=== PATIENT | male | born 1990 | race Caucasian/White ===

== ENCOUNTER 2018-11-21 19:33 | Emergency (ER) | payer BC ==
[2018-11-21] MEDS ORDERED: predniSONE TAB* 20 MG PO ONE (20:39)
[2018-11-21 20:42] VITALS: BP 131/78
--- NOTE | 2018-11-21 20:47 | UC ---
Lower Extremity/Ankle HPI - HPI Summary HPI Summary: 28-year-old male presents with complaints of 3 day history of redness, swelling , and pain of the right great toe. Denies injury. Concerned for gout. States he has been consuming a lot of red meat recently and has been drinking a couple of beers on a daily basis. Pain worsens with touch and weightbearing. Has taken ibuprofen with minimal relief in symptoms. Denies fever, chills, numbness , or tingling. - History of Current Complaint Stated Complaint: FOOT COMPLAINT Time Seen by Provider: 11/21/18 20:38 Hx Obtained From: Patient - Allergies/Home Medications Allergies/Adverse Reactions: Allergies Allergy/AdvReac Type Severity Reaction Status Date / Time No Known Allergies Allergy Verified 11/21/18 20:39 Home Medications: Home Medications Ibuprofen TAB* [Advil TAB*] 400 mg PO Q6H PRN 11/21/18 [History Confirmed ] PMH/Surg Hx/FS Hx/Imm Hx Previously Healthy: Yes - Denies significant PMH - Surgical History Surgical History: None - Family History Known Family History: Positive: Non-Contributory - Social History Occupation: Employed Full-time Lives: With Family Alcohol Use: Occasionally Review of Systems All Other Systems Reviewed And Are Negative: Yes Constitutional: Negative: Fever, Chills Skin: Positive: Other - erythema Respiratory: Positive: Negative Cardiovascular: Positive: Negative Gastrointestinal: Positive: Negative Genitourinary: Positive: Negative Motor: Negative: Weakness Neurovascular: Negative: Decreased Sensation Musculoskeletal: Positive: Other: - See HPI Neurological: Positive: Negative Is Patient Immunocompromised?: No Physical Exam - Summary Physical Exam Summary: GENERAL APPEARANCE: Well developed, well nourished, alert and cooperative, and appears to be in no acute distress. CARDIAC: Normal S1 and S2. No S3, S4 or murmurs. Rhythm is regular. There is no peripheral edema, cyanosis or pallor. Extremities are warm and well perfused. Capillary refill is less than 2 seconds. Peripheral pulses intact. LUNGS: Clear to auscultation without rales, rhonchi, wheezing or diminished breath sounds. ABDOMEN: Positive bowel sounds. Soft, nondistended, nontender. No guarding or rebound. No masses or hepatosplenomegally. MUSKULOSKELETAL: Normal muscular development. Limping gait. EXTREMITIES: Tenderness with erythema, increased warmth, and edema to the MTP of the right great toe. No gross deformity. Circulation sensation intact. SKIN: Skin normal color, texture and turgor with no lesions or eruptions. Triage Information Reviewed: Yes Vital Signs Reviewed: Yes Lower Extremity Course/Dx - Course Course Of Treatment: 28-year-old male presents with complaints of 3 day history of redness, swelling , and pain of the right great toe. Denies injury. Concerned for gout. States he has been consuming a lot of red meat recently and has been drinking a couple of beers on a daily basis. Pain worsens with touch and weightbearing. Has taken ibuprofen with minimal relief in symptoms. Denies fever, chills, numbness , or tingling. Afebrile. Vital signs stable. Patient had tenderness with erythema, increased warmth, and edema to the MTP of the right great toe. No gross deformity. Circulation sensation intact. Remainder of exam was unremarkable. Discussed with the patient that his history and exam are consistent with an acute gout arthritis. He was given a dose of prednisone 40 mg in the clinic and prescribed a prednisone taper. I also provided the patient with some information on a low purine diet to prevent future flareups. He is to follow-up with his primary care provider in 3-5 days if symptoms are not improving. Anticipatory guidance warning symptoms were reviewed with the patient. Verbalizes understanding and agrees with plan of care. - Differential Dx/Diagnosis Differential Diagnosis/HQI/PQRI: Cellulitis, Fracture (Closed), Gout, Sprain Provider Diagnosis: Gouty arthritis of right great toe Discharge - Sign-Out/Discharge Documenting (check all that apply): Patient Departure All imaging exams completed and their final reports reviewed: No Studies - Discharge Plan Condition: Stable Disposition: HOME Prescriptions: predniSONE TAB* [Deltasone 10 MG TAB*] 10 mg PO DAILY #26 tab Patient Education Materials: Low Purine Diet (ED), Gout (ED) Forms: *Work Release Referrals: No Primary Care Phys,NOPCP [Primary Care Provider] - Additional Instructions: Your history and exam are consistent with gout. We gave you a dose of an steroid called prednisone to help with the pain and inflammation. We will have you take a tapering dose of prednisone over the next few days. Starting tomorrow, take prednisone 40 mg (4 tabs) daily for 2 days, then 30 mg ( 3 tabs) for 3 days, then 20 mg (2 tabs) for 3 days, then 10 mg (1 tab) for 3 days, then stop. I have provided you with information on a low purine diet that may help prevent future attacks. Return here or follow up with your primary care provider in 3-5 days if no improvement in your symptoms. Seek immediate medical attention in the emergency room if you develop a fever greater than 100.5 F, have a worsening of the pain, increased swelling of the foot, redness that continues to spread, he developed numbness or tingling in the foot or toes, you are unable to ambulate or bear weight, or have any worsening of symptoms. - Billing Disposition and Condition Condition: STABLE Disposition: Home
== END 2018-11-21 20:58 | disposition home or self-care (01) ==
LOC: UCEAST 19:33
DX: M10.9 Gout, unspecified (principal)
CPT/HCPCS: 99202; G0463; J7512